=== PATIENT | female | born 1975 | race Caucasian/White ===

== ENCOUNTER 2017-10-13 09:45 | Emergency (ER) | payer OTHER ==
[2017-10-13] MEDS: SOD CHLORIDE 0.9% 1,000 ML IV (10:30)
[2017-10-13 10:44] LABS: ADD MAN DIFF? NO
[2017-10-13 10:57] LABS: WHITE BLOOD COUNT 5.3 10^3/ul (4.8-10.8)
[2017-10-13 10:57] LABS: BASOPHIL # 0.1 10^3/ul (0.0-0.1); BASOPHILS % 1.7 % (0.0-2.0); EOSINOPHILS # 0.1 10^3/ul (0.0-0.5); EOSINOPHILS % 1.7 % (0.0-7.0); HEMATOCRIT 34.3 % (37.0-47.0); HEMOGLOBIN 10.3 g/dl (12.0-16.0); LYMPHOCYTES # 1.1 10^3/ul (0.8-2.9); LYMPHOCYTES % 21.2 % (15.0-51.0); MEAN CORPUSCULAR HEMOGLOBIN 23.7 pg (29.0-33.0); MEAN CORPUSCULAR VOLUME 78.9 fl (82.0-101.0); MEAN PLATELET VOLUME 10.8 fl (7.4-10.4); MONOCYTE # 0.4 10^3/ul (0.3-0.9); MONOCYTES % 7.9 % (0.0-11.0); NEUTROPHIL # 3.6 10^3/ul (1.6-7.5); NEUTROPHILS % 67.3 % (39.0-77.0); PLATELET COUNT 308 10^3/UL (140-415); RED BLOOD COUNT 4.35 10^6/ul (4.20-5.40); RED CELL DISTRIBUTION WIDTH 17.4 % (11.5-14.5)
[2017-10-13 11:00] LABS: ADD UMIC YES; UR AMORPHOUS CRYSTAL FEW /HPF (NONE SEEN); UR ASCORBIC ACID NEGATIVE (NEGATIVE); UR BACTERIA FEW /HPF (NONE SEEN); UR BILIRUBIN (Dip) NEGATIVE (NEGATIVE); UR BLOOD (Dip) 1+ mg/dL (NEGATIVE); UR CLARITY SLIGHTLY CLOUDY (CLEAR); UR COLOR YELLOW (YELLOW); UR GLUCOSE (Dip) NEGATIVE (NEGATIVE); UR KETONES (Dip) NEGATIVE (NEGATIVE); UR LEUKOCYTE ESTERASE (Dip) 1+ Leu/ul (NEGATIVE); UR NITRITE (Dip) NEGATIVE (NEGATIVE); UR RBC 2 /HPF (0-5); UR SPECIFIC GRAVITY (Dip) 1.006 (1.003-1.030); UR SQUAMOUS EPITHELIAL CELL FEW /HPF (FEW); UR TOTAL PROTEIN (Dip) NEGATIVE (NEGATIVE); UR UROBILINOGEN (Dip) NEGATIVE (NEGATIVE); UR WBC 8 /HPF (0-5)
[2017-10-13 11:18] LABS: ANION GAP 14 (8-16); BLOOD UREA NITROGEN 6 mg/dl (7-20); CALCIUM 9.3 mg/dl (8.4-10.2); CARBON DIOXIDE 27 mmol/L (21-31); CHLORIDE 103 mmol/L (97-110); CREATININE 0.55 mg/dl (0.44-1.00); GLUCOSE 104 mg/dl (70-220); INR 1.04; POTASSIUM 4.3 mmol/L (3.5-5.1); PROTIME 13.7 Sec (11.9-14.9); PT RATIO 1.1; SODIUM 140 mmol/L (135-144)
[2017-10-13 11:19] LABS: PARTIAL THROMBOPLASTIN TIME 28.8 Sec (25.0-35.0)
[2017-10-13 11:36] LABS: TROPONIN-I < 0.010 ng/ml (0.000-0.120)
== END 2017-10-13 12:07 | disposition home or self-care (01) ==
LOC: FTE 09:45
DX: H53.8 Other visual disturbances (principal); D64.9 Anemia, unspecified; N30.01 Acute cystitis with hematuria
CPT/HCPCS: 36415; 70450; 76536; 80048; 81001; 81025; 84484; 85025; 85610; 85730; 93005; 99285-25